=== PATIENT | female | born 1975 | race Caucasian/White ===

== ENCOUNTER 2019-07-25 11:00 | Emergency (ER) | payer MEDICAID, OTHER ==
[~2019-07-25] VITALS: Ht 167.6 cm; Wt 58.2 kg
[2019-07-25] MEDS ORDERED: ondansetron/PF 4mg/2ml inj IV ONE (11:35)
[2019-07-25] MEDS ORDERED: morphine 4 MG/ML inj SYRINge IV PRN (11:35)
[2019-07-25] MEDS ORDERED: normal saline 1000ML IV soln IVB ONE (11:35)
[2019-07-25 11:40] LABS: BASOPHILS % (AUTO) 0.1 % (0-1); EOSINOPHILS # (AUTO) 0.1 X10'3 (0-0.9); EOSINOPHILS % (AUTO) 1.4 % (0-6); HEMATOCRIT 43.3 % (35.0-45.0); HEMOGLOBIN 14.8 g/dl (12.0-16.0); LYMPHOCYTES # (AUTO) 2.1 X10'3 (1.1-4.8); LYMPHOCYTES % (AUTO) 29.4 % (21-51); MEAN CORPUSCULAR HEMOGLOBIN 33.9 PG (27.0-31.0); MEAN CORPUSCULAR HGB CONC 34.3 g/dL (33.0-36.5); MEAN CORPUSCULAR VOLUME 98.9 FL (78-98); MEAN PLATELET VOLUME 7.1 FL (7.4-10.4); MONOCYTES # (AUTO) 0.6 X10'3 (0-0.9); MONOCYTES % (AUTO) 8.7 % (2-12); NEUTROPHILS # (AUTO) 4.3 X10'3 (1.8-7.7); NEUTROPHILS % (AUTO) 60.4 % (42-75); PLATELET COUNT 258 X10'3 (140-440); RED BLOOD COUNT 4.38 X10'6 (4.20-5.60); RED CELL DISTRIBUTION WIDTH 13.5 % (11.5-14.5); WHITE BLOOD COUNT 7.1 X10'3 (4.5-11.0)
[2019-07-25 11:49] LABS: URINE HCG NEGATIVE (NEG)
[2019-07-25 11:53] LABS: CLARITY,URINE SLIGHTLY CLOUDY (Clear); COLOR,URINE YELLOW (Yellow); GLUCOSE, URINE NEGATIVE (Neg); KETONES,URINE TRACE mg/dl (Neg); LEUKOCYTE ESTERASE ,URINE NEGATIVE (Neg); NITRITES, URINE NEGATIVE (Neg); OCCULT BLOOD,URINE NEGATIVE (Neg); PROTEIN,URINE NEGATIVE (Neg); UROBILINOGEN,URINE 0.2 E.U/dL (0.2-1.0)
[2019-07-25 11:54] LABS: UA COLLECTION TYPE CLN CATCH MIDSTREAM
[2019-07-25 11:57] LABS: ALANINE AMINOTRANSFERASE 15 U/L (12-78); ALBUMIN 3.6 G/DL (3.4-5.0); ALKALINE PHOSPHATASE 82 IU/L (46-116); ANION GAP 9 (8-16); ASPARTATE AMINO TRANSFERASE 12 U/L (10-37); BILIRUBIN,TOTAL 0.5 MG/DL (0.1-1.0); BLOOD UREA NITROGEN 11 MG/DL (7-18); BUN/CREATININE RATIO 11.6 (6.6-38.0); CALCIUM 8.5 MG/DL (8.5-10.1); CHLORIDE 107 MMOL/L (99-107); CREATININE 0.95 MG/DL (0.40-0.90); GLUCOSE 98 MG/DL (70-104); LIPASE 120 U/L (73-393); POTASSIUM 3.9 MMOL/L (3.5-5.1); SODIUM 142 MMOL/L (135-145); TOTAL CARBON DIOXIDE 25.8 MMOL/L (24-32); TOTAL PROTEIN 7.3 G/DL (6.4-8.2); eGFR 65 ML/MIN
[2019-07-25] MEDS ORDERED: iohexol 300mg/ml 100ml inj. ONE (12:08)
[2019-07-25 12:11] LABS: RBC,URINE 0-2 /HPF (0-2)
[2019-07-25 12:13] LABS: SQUAMOUS EPITHELIAL CELL,UR MANY /LPF (FEW)
[2019-07-25 12:16] LABS: AMORPHOUS PHOSPHATES 1+; BACTERIA,URINE 1+ /HPF (Neg)
[2019-07-25 12:18] LABS: MUCUS STRANDS MODERATE /LPF (Neg); WBC,URINE 0-4 /HPF (0-4)
[2019-07-25 12:31] LABS: TROPONIN I < 0.04 NG/ML (0.0-0.05)
[2019-07-25] MEDS ORDERED: ONDA4TAB6 PO (13:14)
[2019-07-25] MEDS ORDERED: TRAM50TA2 PO (13:14)
[2019-07-25] MEDS ORDERED: proCHLORperazine 10 MG/2 ml inj IV ONE (13:15)
[2019-07-25] MEDS ORDERED: ketorolac trometh. 30mg/ml inj. IV ONE (13:15)
[2019-07-25] MEDS ORDERED: famotidine/PF 10 mg/ml inj IV ONE (13:15)
[2019-07-25 13:31] VITALS: BP 99/50
== END 2019-07-25 13:41 | disposition home or self-care (01) ==
LOC: ER 11:01
DX: R10.84 Generalized abdominal pain (principal); F17.200 Nicotine dependence, unspecified, uncomplicated; Z79.899 Other long term (current) drug therapy
CPT/HCPCS: 36415; 71045; 74177; 80053; 81001; 81025; 83690; 84484; 85025; 85610; 93005; 96361; 96374; 96375; 99284; J0780; J1885; J2270; J2405; J3490; J7030; Q9967

== ENCOUNTER 2019-07-28 20:57 | Emergency (ER) | payer MEDICAID, OTHER ==
[~2019-07-28] VITALS: Ht 168.9 cm; Wt 56.4 kg
[~2019-07-28 20:57] MED LIST: ONDA4TAB6 PO; TRAM50TA2 PO
[2019-07-28] MEDS ORDERED: normal saline 1000ml 1,000 ML IVB ONE (21:03)
[2019-07-28 21:37] LABS: BASOPHILS # (AUTO) 0.1 X10'3 (0-0.2); BASOPHILS % (AUTO) 1.3 % (0-1); EOSINOPHILS # (AUTO) 0.1 X10'3 (0-0.9); EOSINOPHILS % (AUTO) 1.8 % (0-6); HEMATOCRIT 41.4 % (35.0-45.0); HEMOGLOBIN 14.2 g/dl (12.0-16.0); LYMPHOCYTES # (AUTO) 2.1 X10'3 (1.1-4.8); LYMPHOCYTES % (AUTO) 25.8 % (21-51); MEAN CORPUSCULAR HEMOGLOBIN 34.5 PG (27.0-31.0); MEAN CORPUSCULAR HGB CONC 34.4 g/dL (33.0-36.5); MEAN CORPUSCULAR VOLUME 100.3 FL (78-98); MEAN PLATELET VOLUME 7.5 FL (7.4-10.4); MONOCYTES # (AUTO) 0.6 X10'3 (0-0.9); MONOCYTES % (AUTO) 7.8 % (2-12); NEUTROPHILS # (AUTO) 5.2 X10'3 (1.8-7.7); NEUTROPHILS % (AUTO) 63.3 % (42-75); PLATELET COUNT 238 X10'3 (140-440); RED BLOOD COUNT 4.13 X10'6 (4.20-5.60); WHITE BLOOD COUNT 8.2 X10'3 (4.5-11.0)
[2019-07-28 21:39] LABS: URINE HCG NEGATIVE (NEG)
[2019-07-28 21:42] LABS: CLARITY,URINE CLEAR (Clear); COLOR,URINE YELLOW (Yellow); GLUCOSE, URINE NEGATIVE (Neg); KETONES,URINE TRACE mg/dl (Neg); LEUKOCYTE ESTERASE ,URINE NEGATIVE (Neg); NITRITES, URINE NEGATIVE (Neg); OCCULT BLOOD,URINE TRACE-INTACT (Neg); PH,URINE 5.5 (4.8-8.0); PROTEIN,URINE NEGATIVE (Neg); UROBILINOGEN,URINE 0.2 E.U/dL (0.2-1.0)
[2019-07-28 21:45] LABS: UA COLLECTION TYPE CLN CATCH MIDSTREAM
[2019-07-28 21:48] LABS: BACTERIA,URINE 1+ /HPF (Neg); MUCUS STRANDS MANY /LPF (Neg); RBC,URINE 0-2 /HPF (0-2); SQUAMOUS EPITHELIAL CELL,UR MANY /LPF (FEW); WBC,URINE 0-4 /HPF (0-4)
[2019-07-28 21:54] LABS: ALANINE AMINOTRANSFERASE 13 U/L (12-78); ALBUMIN 3.5 G/DL (3.4-5.0); ALBUMIN/GLOBULIN RATIO 0.9 (1.1-1.5); ALKALINE PHOSPHATASE 77 IU/L (46-116); AMYLASE 40 U/L (25-115); ANION GAP 10 (8-16); ASPARTATE AMINO TRANSFERASE 8 U/L (10-37); BILIRUBIN,TOTAL 0.3 MG/DL (0.1-1.0); BLOOD UREA NITROGEN 10 MG/DL (7-18); CALCIUM 8.6 MG/DL (8.5-10.1); CHLORIDE 105 MMOL/L (99-107); CREATININE 1.11 MG/DL (0.40-0.90); GLUCOSE 94 MG/DL (70-104); LIPASE 116 U/L (73-393); POTASSIUM 4.2 MMOL/L (3.5-5.1); SODIUM 140 MMOL/L (135-145); TOTAL CARBON DIOXIDE 24.8 MMOL/L (24-32); TOTAL PROTEIN 7.2 G/DL (6.4-8.2); eGFR 54 ML/MIN
[2019-07-29] MEDS ORDERED: HYDROcodone/acetaminophen 5mg/325mg tablet PO ONE (00:35)
[2019-07-29] MEDS ORDERED: ondansetron/PF 4mg/2ml inj IV ONE (00:35)
[2019-07-29] MEDS ORDERED: normal saline 1000ml 1,000 ML IV ONE (00:35)
[2019-07-29] MEDS ORDERED: ketorolac trometh. 30mg/ml inj. IV ONE (00:35)
[2019-07-29] MEDS ORDERED: MAGN296S50 PO (02:15)
[2019-07-29] MEDS ORDERED: ONDA8TAB6 PO (02:15)
[2019-07-29] MEDS ORDERED: BISA-155 PO (02:15)
[2019-07-29 02:50] VITALS: BP 106/62
== END 2019-07-29 02:59 | disposition home or self-care (01) ==
LOC: ER 21:00
DX: K59.00 Constipation, unspecified (principal); R10.32 Left lower quadrant pain; R11.2 Nausea with vomiting, unspecified; Z79.899 Other long term (current) drug therapy
CPT/HCPCS: 36415; 74018; 80053; 81001; 81025; 82150; 83690; 85025; 85610; 96361; 96374; 96375; 99284; J1885; J2405; J7030

== ENCOUNTER 2019-07-30 08:25 | Emergency (ER) | payer MEDICAID, OTHER ==
[~2019-07-30] VITALS: Ht 160 cm; Wt 50.0 kg
[~2019-07-30 08:25] MED LIST changes: +BISA-155 PO; +MAGN296S50 PO; +ONDA8TAB6 PO
[2019-07-30] MEDS ORDERED: ondansetron/PF 4mg/2ml inj IV ONE (08:40)
[2019-07-30] MEDS ORDERED: normal saline 1000ML IV soln IVB ONE (08:40)
[2019-07-30] MEDS ORDERED: morphine 4 MG/ML inj SYRINge IV ONE (08:40)
[2019-07-30 09:09] LABS: BASOPHILS # (AUTO) 0.1 X10'3 (0-0.2); BASOPHILS % (AUTO) 1.1 % (0-1); EOSINOPHILS # (AUTO) 0.1 X10'3 (0-0.9); EOSINOPHILS % (AUTO) 1.6 % (0-6); HEMATOCRIT 41.2 % (35.0-45.0); HEMOGLOBIN 13.9 g/dl (12.0-16.0); LYMPHOCYTES # (AUTO) 1.5 X10'3 (1.1-4.8); LYMPHOCYTES % (AUTO) 25.4 % (21-51); MEAN CORPUSCULAR HEMOGLOBIN 33.8 PG (27.0-31.0); MEAN CORPUSCULAR HGB CONC 33.7 g/dL (33.0-36.5); MEAN CORPUSCULAR VOLUME 100.2 FL (78-98); MEAN PLATELET VOLUME 7.3 FL (7.4-10.4); MONOCYTES # (AUTO) 0.5 X10'3 (0-0.9); NEUTROPHILS # (AUTO) 3.7 X10'3 (1.8-7.7); NEUTROPHILS % (AUTO) 62.9 % (42-75); PLATELET COUNT 245 X10'3 (140-440); RED BLOOD COUNT 4.11 X10'6 (4.20-5.60); RED CELL DISTRIBUTION WIDTH 13.8 % (11.5-14.5); WHITE BLOOD COUNT 5.9 X10'3 (4.5-11.0)
[2019-07-30 09:22] LABS: ANION GAP 9 (8-16); BLOOD UREA NITROGEN 6 MG/DL (7-18); BUN/CREATININE RATIO 5.8 (6.6-38.0); CHLORIDE 106 MMOL/L (99-107); CREATININE 1.04 MG/DL (0.40-0.90); GLUCOSE 104 MG/DL (70-104); POTASSIUM 3.8 MMOL/L (3.5-5.1); SODIUM 142 MMOL/L (135-145); TOTAL CARBON DIOXIDE 27.5 MMOL/L (24-32); eGFR 58 ML/MIN
[2019-07-30 09:23] LABS: ALANINE AMINOTRANSFERASE 13 U/L (12-78); ALBUMIN 3.2 G/DL (3.4-5.0); ALBUMIN/GLOBULIN RATIO 0.9 (1.1-1.5); ALKALINE PHOSPHATASE 76 IU/L (46-116); ASPARTATE AMINO TRANSFERASE 9 U/L (10-37); BILIRUBIN,TOTAL 0.3 MG/DL (0.1-1.0); CALCIUM 8.6 MG/DL (8.5-10.1); LIPASE 91 U/L (73-393); TOTAL PROTEIN 6.9 G/DL (6.4-8.2)
[2019-07-30 09:28] LABS: URINE AMPHETAMINE SCREEN NEGATIVE (Neg); URINE BARBITUATE SCREEN NEGATIVE (Neg); URINE BENZODIAZEPINES SCREEN NEGATIVE (Neg); URINE CANNABINOID SCREEN NEGATIVE (Neg); URINE COCAINE SCREEN NEGATIVE (Neg); URINE METHADONE SCREEN NEGATIVE (Neg); URINE OPIATE SCREEN NEGATIVE (Neg); URINE PHENCYCLIDINE SCREEN NEGATIVE (Neg)
[2019-07-30] MEDS ORDERED: ketorolac tromethamine 15mg/ml inj. IV ONE (09:45)
[2019-07-30 10:26] VITALS: BP 120/79
== END 2019-07-30 10:32 | disposition home or self-care (01) ==
LOC: ER 08:25
DX: R10.13 Epigastric pain (principal); R11.2 Nausea with vomiting, unspecified; M54.6 Pain in thoracic spine; Z79.899 Other long term (current) drug therapy
CPT/HCPCS: 36415; 80053; 80305; 83690; 85025; 93005; 96361; 96374; 96375; 99284; J1885; J2270; J2405; J7030

== ENCOUNTER 2019-08-02 14:04 | Emergency (ER) | payer MEDICAID, OTHER ==
[~2019-08-02] VITALS: Ht 170.2 cm; Wt 55.5 kg
[2019-08-02 14:41] LABS: BASOPHILS % (AUTO) 0.5 % (0-1); EOSINOPHILS # (AUTO) 0.1 X10'3 (0-0.9); EOSINOPHILS % (AUTO) 0.9 % (0-6); HEMATOCRIT 43.7 % (35.0-45.0); HEMOGLOBIN 14.9 g/dl (12.0-16.0); LYMPHOCYTES # (AUTO) 1.5 X10'3 (1.1-4.8); LYMPHOCYTES % (AUTO) 17.7 % (21-51); MEAN CORPUSCULAR HGB CONC 34.1 g/dL (33.0-36.5); MEAN PLATELET VOLUME 7.3 FL (7.4-10.4); MONOCYTES # (AUTO) 0.5 X10'3 (0-0.9); MONOCYTES % (AUTO) 6.3 % (2-12); NEUTROPHILS # (AUTO) 6.4 X10'3 (1.8-7.7); NEUTROPHILS % (AUTO) 74.6 % (42-75); PLATELET COUNT 310 X10'3 (140-440); RED BLOOD COUNT 4.38 X10'6 (4.20-5.60); WHITE BLOOD COUNT 8.6 X10'3 (4.5-11.0)
[2019-08-02 15:00] LABS: ALANINE AMINOTRANSFERASE 17 U/L (12-78); ALBUMIN 3.6 G/DL (3.4-5.0); ALBUMIN/GLOBULIN RATIO 0.9 (1.1-1.5); ALKALINE PHOSPHATASE 82 IU/L (46-116); AMYLASE 28 U/L (25-115); ANION GAP 10 (8-16); ASPARTATE AMINO TRANSFERASE 15 U/L (10-37); BILIRUBIN,TOTAL 0.4 MG/DL (0.1-1.0); BLOOD UREA NITROGEN 8 MG/DL (7-18); BUN/CREATININE RATIO 7.5 (6.6-38.0); CHLORIDE 104 MMOL/L (99-107); CREATININE 1.07 MG/DL (0.40-0.90); GLUCOSE 89 MG/DL (70-104); LIPASE 71 U/L (73-393); POTASSIUM 4.2 MMOL/L (3.5-5.1); SODIUM 142 MMOL/L (135-145); TOTAL CARBON DIOXIDE 27.7 MMOL/L (24-32); TOTAL PROTEIN 7.8 G/DL (6.4-8.2); eGFR 56 ML/MIN
[2019-08-02] MEDS ORDERED: normal saline 1000ML IV soln IVB ONE (15:20)
[2019-08-02] MEDS ORDERED: ondansetron/PF 4mg/2ml inj IV ONE (15:20)
[2019-08-02] MEDS ORDERED: morphine 4 MG/ML inj SYRINge IV PRN (15:20)
[2019-08-02] MEDS ORDERED: ketorolac trometh. 30mg/ml inj. IV ONE (15:20)
[2019-08-02 17:03] LABS: CLARITY,URINE CLOUDY (Clear); COLOR,URINE YELLOW (Yellow); GLUCOSE, URINE NEGATIVE (Neg); KETONES,URINE 40 mg/dl (Neg); LEUKOCYTE ESTERASE ,URINE NEGATIVE (Neg); NITRITES, URINE NEGATIVE (Neg); OCCULT BLOOD,URINE NEGATIVE (Neg); PROTEIN,URINE NEGATIVE (Neg); UA COLLECTION TYPE CLN CATCH MIDSTREAM; UROBILINOGEN,URINE 0.2 E.U/dL (0.2-1.0)
[2019-08-02 17:05] LABS: URINE HCG NEGATIVE (NEG)
[2019-08-02 17:12] LABS: AMORPHOUS PHOSPHATES 2+; SQUAMOUS EPITHELIAL CELL,UR MODERATE /LPF (FEW)
[2019-08-02 17:16] LABS: BACTERIA,URINE FEW /HPF (Neg); RBC,URINE 0-2 /HPF (0-2); WBC,URINE 0-4 /HPF (0-4)
[2019-08-02] MEDS ORDERED: dexamethasone sod phosphate 10mg/ml inj IV STA (17:17)
[2019-08-02] MEDS ORDERED: ONDA4TAB6 PO (17:18)
[2019-08-02] MEDS ORDERED: METO-292 PO (17:18)
[2019-08-02] MEDS ORDERED: metoclopramide 5 mg/ml inj IV ONE (17:20)
[2019-08-02 17:41] VITALS: BP 103/46
== END 2019-08-02 17:44 | disposition home or self-care (01) ==
LOC: ER 14:05
DX: G89.29 Other chronic pain (principal); R10.84 Generalized abdominal pain; R11.2 Nausea with vomiting, unspecified
CPT/HCPCS: 36415; 76856; 80053; 81001; 81025; 82150; 83690; 85025; 85610; 96361; 96374; 96375; 99284; J1100; J1885; J2270; J2405; J2765; J7030

== ENCOUNTER 2019-08-05 11:33 | Inpatient (IN) | payer MEDICAID, OTHER ==
[2019-08-05] VITALS (7 sets, daily range): BP systolic 100–109; BP diastolic 49–72
[~2019-08-05] VITALS: Ht 170.2 cm; Wt 60.9 kg
[~2019-08-05 11:33] MED LIST changes: +METO-292 PO
[2019-08-05] MEDS ORDERED: normal saline 1000ML IV soln IVB ONE (12:50)
[2019-08-05] MEDS ORDERED: haloperidol lactate 5mg/ml inj IM ONE (12:50)
[2019-08-05] MEDS ORDERED: LORazepam 2 mg/ml vial IV ONE (12:50)
[2019-08-05] MEDS ORDERED: metoclopramide 5 mg/ml inj IV ONE (12:50)
[2019-08-05] MEDS: diatr meglu/diatrizoate 30ml oral sol.-(3 dose) bottle PO SCH ×3 (13:03→14:32)
[2019-08-05] MEDS ORDERED: diphenhydrAMINE 50 mg/ml inj IV ONE (13:25)
[2019-08-05] MEDS ORDERED: ketorolac trometh. 30mg/ml inj. IV ONE (13:25)
[2019-08-05 13:34] LABS: BASOPHILS # (AUTO) 0.1 X10'3 (0-0.2); BASOPHILS % (AUTO) 1.3 % (0-1); EOSINOPHILS # (AUTO) 0.1 X10'3 (0-0.9); EOSINOPHILS % (AUTO) 1.2 % (0-6); HEMATOCRIT 36.7 % (35.0-45.0); HEMOGLOBIN 12.4 g/dl (12.0-16.0); LYMPHOCYTES # (AUTO) 0.9 X10'3 (1.1-4.8); LYMPHOCYTES % (AUTO) 14.2 % (21-51); MEAN CORPUSCULAR HEMOGLOBIN 33.9 PG (27.0-31.0); MEAN CORPUSCULAR HGB CONC 33.8 g/dL (33.0-36.5); MEAN CORPUSCULAR VOLUME 100.1 FL (78-98); MEAN PLATELET VOLUME 7.4 FL (7.4-10.4); MONOCYTES # (AUTO) 0.2 X10'3 (0-0.9); MONOCYTES % (AUTO) 3.8 % (2-12); NEUTROPHILS # (AUTO) 5.1 X10'3 (1.8-7.7); NEUTROPHILS % (AUTO) 79.5 % (42-75); PLATELET COUNT 272 X10'3 (140-440); RED BLOOD COUNT 3.66 X10'6 (4.20-5.60); RED CELL DISTRIBUTION WIDTH 13.5 % (11.5-14.5); WHITE BLOOD COUNT 6.4 X10'3 (4.5-11.0)
[2019-08-05 13:47] LABS: ALANINE AMINOTRANSFERASE 11 U/L (12-78); ALBUMIN/GLOBULIN RATIO 0.9 (1.1-1.5); ALKALINE PHOSPHATASE 63 IU/L (46-116); ANION GAP 7 (8-16); ASPARTATE AMINO TRANSFERASE 10 U/L (10-37); BILIRUBIN,TOTAL 0.6 MG/DL (0.1-1.0); BLOOD UREA NITROGEN 12 MG/DL (7-18); BUN/CREATININE RATIO 10.7 (6.6-38.0); CHLORIDE 107 MMOL/L (99-107); CREATININE 1.12 MG/DL (0.40-0.90); GLUCOSE 111 MG/DL (70-104); LIPASE 84 U/L (73-393); MAGNESIUM 1.8 MG/DL (1.5-2.4); SODIUM 142 MMOL/L (135-145); TOTAL CARBON DIOXIDE 27.8 MMOL/L (24-32); TOTAL PROTEIN 6.4 G/DL (6.4-8.2); eGFR 53 ML/MIN
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
--- NOTE | 2019-08-05 14:06 | NUR ---
PT SCREAMING AT STAFF WALKING BY ROOM THAT SHE CANT BREATHE AND HER LIPS ARE TURNING BLUE. I EXAMINED PT WHO SAID SHE NEEDS SOMETHING "STRONGER FOR PAIN". ADVISED. NO NEW ORDERS.
[2019-08-05] MEDS ORDERED: iohexol 300mg/ml 100ml inj. ONE (14:32)
[2019-08-05] MEDS ORDERED: morphine 4 MG/ML inj SYRINge IV ONE (15:15)
[2019-08-05] MEDS ORDERED: normal saline 1000ML IV soln IV ONE (15:25)
[2019-08-05] MEDS ORDERED: piperacillin/tazo 3.375gm/50ml 50 ML IV ONE (15:25)
--- NOTE | 2019-08-05 15:58 | NUR ---
AUGUST Kim in room with pt
[2019-08-05] MEDS: piperacillin/tazo 4.5gm/100ml 100 ML IV SCH (16:00)
--- NOTE | 2019-08-05 16:09 | NUR ---
Shetty catheter placed with Angelina RN as witness
[2019-08-05 16:18] LABS: URINE HCG NEGATIVE (NEG)
[2019-08-05 16:20] LABS: CLARITY,URINE SLIGHTLY CLOUDY (Clear); COLOR,URINE YELLOW (Yellow); GLUCOSE, URINE 250 mg/dl (Neg); KETONES,URINE NEGATIVE (Neg); LEUKOCYTE ESTERASE ,URINE NEGATIVE (Neg); NITRITES, URINE NEGATIVE (Neg); OCCULT BLOOD,URINE LARGE (Neg); PH,URINE 6.5 (4.8-8.0); PROTEIN,URINE NEGATIVE (Neg); UROBILINOGEN,URINE 0.2 E.U/dL (0.2-1.0)
[2019-08-05 16:24] LABS: UA COLLECTION TYPE OTHER
[2019-08-05 16:27] LABS: SQUAMOUS EPITHELIAL CELL,UR FEW /LPF (FEW)
[2019-08-05] MEDS: metroNIDAZOLE-Flagyl 500mg/NS 100 ML IV SCH ×2 (16:27→23:50)
[2019-08-05 16:28] LABS: BACTERIA,URINE NONE SEEN /HPF (Neg); RBC,URINE 50-100 /HPF (0-2); WBC,URINE 0-4 /HPF (0-4)
[2019-08-05 16:47] LABS: URINE AMPHETAMINE SCREEN NEGATIVE (Neg); URINE BARBITUATE SCREEN NEGATIVE (Neg); URINE BENZODIAZEPINES SCREEN NEGATIVE (Neg); URINE CANNABINOID SCREEN POSITIVE (Neg); URINE COCAINE SCREEN NEGATIVE (Neg); URINE METHADONE SCREEN NEGATIVE (Neg); URINE OPIATE SCREEN POSITIVE (Neg); URINE PHENCYCLIDINE SCREEN NEGATIVE (Neg)
--- NOTE | 2019-08-05 16:55 | NUR ---
MD Cantrell in room with pt and pt's sister.
[2019-08-05] MEDS ORDERED: clindamycin phosphate 150mg/ml inj. ONE (17:22)
[2019-08-05] MEDS ORDERED: gentamicin 40 MG/1 ML inj ONE (17:22)
[2019-08-05] MEDS ORDERED: ringers solution, lacted 1,000 ML IV SCH (17:27)
[2019-08-05] MEDS ORDERED: morphine 4 MG/ML inj SYRINge IV PRN ×2 (17:30)
[2019-08-05] MEDS ORDERED: meperidine/PF 25mg/ml syringe IV PRN ×3 (17:30)
[2019-08-05] MEDS ORDERED: proCHLORperazine 10 MG/2 ml inj IV PRN (17:30)
[2019-08-05] MEDS ORDERED: ondansetron/PF 4mg/2ml inj IV PRN ×2 (17:30→20:40)
[2019-08-05] MEDS: normal saline 1000ml 1,000 ML IV SCH ×3 (17:40→22:32)
--- NOTE | 2019-08-05 17:47 | NUR ---
Pt picked up by OR techs and transported to OR with sister
[2019-08-05] MEDS ORDERED: ondansetron/PF 4mg/2ml inj ONE (17:52)
[2019-08-05] MEDS ORDERED: dexamethasone sod phosphate 10mg/ml inj ONE (17:52)
[2019-08-05] MEDS ORDERED: sevoflurane 250ml liquid IH ONE (17:52)
[2019-08-05] MEDS ORDERED: midazolam 2 mg/2 ml injection ONE (18:01)
[2019-08-05] MEDS ORDERED: fentaNYL /PF 50mcg/ml 5ml ampule ONE (18:01)
[2019-08-05] MEDS ORDERED: propofol inj 20 ML IV ONE (18:16)
[2019-08-05] MEDS ORDERED: LIDOcaine 2% (20mg/ml) 5ml vial ONE (18:16)
[2019-08-05] MEDS ORDERED: BUPIVACAINE liposomal/PF 13.3 MG/ML vial IM ONE (19:54)
[2019-08-05] MEDS ORDERED: BUPIVAcaine/PF 2.5 mg/ml (0.25%) 30ml vial ONE (19:54)
[2019-08-05] MEDS ORDERED: magnesium 2GM in 50ml NS 50 ML IV PRN (20:40)
[2019-08-05] MEDS ORDERED: acetaminophen 325mg tablet PO PRN ×2 (20:40)
[2019-08-05] MEDS ORDERED: magnesium 4gm in 100ml NS 100 ML IV PRN (20:40)
[2019-08-05] MEDS ORDERED: potassium CL 10mEq/100ml bag 100 ML IV PRN ×2 (20:40)
[2019-08-05] MEDS ORDERED: sodium phosphate inj. 30 MMOL in dextrose 5%-water 250 ML IV PRN (20:40)
[2019-08-05] MEDS ORDERED: acetaminophen 650mg rectal suppository RC PRN (20:40)
[2019-08-05] MEDS ORDERED: magnesium hydroxide 30ml (MOM) UD suspension PO PRN (20:40)
[2019-08-05] MEDS ORDERED: sodium phosphate inj. 15 MMOL in dextrose 5%-water 150 ML IV PRN (20:40)
[2019-08-05] MEDS ORDERED: rocuronium 10mg/ml inj IV ONE ×2 (20:59→21:00)
[2019-08-05] MEDS ORDERED: meperidine/PF 50mg/ml syringe ONE (21:00)
--- NOTE | 2019-08-05 21:15 | NUR ---
ADMIT TO ICU ACCOMPANIED BY ANESTHESIA, EXTUBATED NO CENTRAL LINES, AROUSABLE TO NAME DENIES PAIN. [place] DRAIN WITH MINIMAL DRAINAGE, ZHU CATHETER INTACT.N/G TUBE TO LOW INTERMITTENT SUCTION ORDERED. INITIAL PHYSICAL ASSESMENT DONE AND RECORDED.
--- NOTE | 2019-08-05 21:45 | NUR ---
PT IS RESPONSIVE, DENIES SURGICAL PAIN. VSS. ON NASAL CANNULA WITH GOOD SATURATIONS~100%
--- NOTE | 2019-08-05 22:00 | NUR ---
DISCHARGE CRITERIA MET, NO COMPLAINTS OF PAIN DURING RECOVERY. TAP BLOCK EFFECTIVE, VSS STABLE. HAND OFF TO AIRPLANE ENGINEER JOSSE. PT IS IN ICU FOR 24 HR OBSERVATION. STABLE.
[2019-08-05] MEDS: pantoprazole 40 MG vial IV SCH (22:32)
[2019-08-06] VITALS (21 sets, daily range): BP systolic 85–112; BP diastolic 39–72
[2019-08-06] MEDS: morphine 2 MG/ML inj. syringe IV PRN ×2 (00:19→07:28)
[2019-08-06] MEDS: piperacillin/tazo 4.5gm/100ml 100 ML IV SCH ×3 (01:09→16:52)
[2019-08-06 01:10] LABS: BASOPHILS % (AUTO) 0.1 % (0-1); EOSINOPHILS % (AUTO) 0 % (0-6); HEMATOCRIT 34.6 % (35.0-45.0); HEMOGLOBIN 11.9 g/dl (12.0-16.0); LYMPHOCYTES # (AUTO) 0.5 X10'3 (1.1-4.8); LYMPHOCYTES % (AUTO) 4.9 % (21-51); MEAN CORPUSCULAR HEMOGLOBIN 33.9 PG (27.0-31.0); MEAN CORPUSCULAR HGB CONC 34.2 g/dL (33.0-36.5); MEAN PLATELET VOLUME 7.4 FL (7.4-10.4); MONOCYTES # (AUTO) 0.3 X10'3 (0-0.9); MONOCYTES % (AUTO) 3.4 % (2-12); NEUTROPHILS # (AUTO) 8.7 X10'3 (1.8-7.7); NEUTROPHILS % (AUTO) 91.6 % (42-75); PLATELET COUNT 249 X10'3 (140-440); RED CELL DISTRIBUTION WIDTH 13.7 % (11.5-14.5); WHITE BLOOD COUNT 9.5 X10'3 (4.5-11.0)
[2019-08-06 01:17] LABS: PARTIAL THROMBOPLASTIN TIME 28 SECONDS (22-32)
[2019-08-06 01:19] LABS: ALANINE AMINOTRANSFERASE 35 U/L (12-78); ALBUMIN 2.3 G/DL (3.4-5.0); ALBUMIN/GLOBULIN RATIO 0.7 (1.1-1.5); ALKALINE PHOSPHATASE 49 IU/L (46-116); ANION GAP 7 (8-16); ASPARTATE AMINO TRANSFERASE 41 U/L (10-37); BILIRUBIN,TOTAL 0.7 MG/DL (0.1-1.0); BLOOD UREA NITROGEN 9 MG/DL (7-18); BUN/CREATININE RATIO 9.4 (6.6-38.0); CALCIUM 7.4 MG/DL (8.5-10.1); CHLORIDE 111 MMOL/L (99-107); CREATININE 0.96 MG/DL (0.40-0.90); GLUCOSE 150 MG/DL (70-104); MAGNESIUM 1.5 MG/DL (1.5-2.4); PHOSPHORUS 3.6 MG/DL (2.3-4.5); POTASSIUM 4.6 MMOL/L (3.5-5.1); SODIUM 142 MMOL/L (135-145); TOTAL CARBON DIOXIDE 24.5 MMOL/L (24-32); TOTAL PROTEIN 5.5 G/DL (6.4-8.2); eGFR 64 ML/MIN
[2019-08-06] MEDS: normal saline 1000ml 1,000 ML IV SCH (01:55)
[2019-08-06] MEDS: dextrose 5%-1/2 normal saline 1,000 ML IV SCH ×2 (02:20→15:15)
[2019-08-06] MEDS: pantoprazole 40 MG vial IV SCH (07:27)
[2019-08-06] MEDS: metroNIDAZOLE-Flagyl 500mg/NS 100 ML IV SCH (07:28)
[2019-08-06] MEDS: docusate sod 100mg capsule PO SCH ×2 (08:00→20:00)
[2019-08-06] MEDS ORDERED: pantoprazole 40 MG vial IV ONE (08:00)
[2019-08-06] MEDS ORDERED: CADD PCA waste documentation MC SCH (08:05)
[2019-08-06] MEDS: HYDROmorphone/NS 1 mg/ml CADD 50 ML IV SCH ×9 (08:27→23:00)
[2019-08-06] MEDS: K, MAG and/or Phos replacement - Verify level? MC SCH (08:34)
--- NOTE | 2019-08-06 08:42 | NUR ---
Dilaudid COLOR CONSULTANT started and patient education given re use, medication and pain management using the atv mechanic. Pain level 8-9/10 with Morphine being ineffective. Upper abd pain with dressing cdi. No bowel sounds yet. NG still in place to low int suction. No drainage from ng.
--- NOTE | 2019-08-06 11:00 | NUR ---
States pain now well controlled after Dilaudid solution make up operator started. States pain 3-4 at this time.
[2019-08-06] MEDS ORDERED: albumin (human) 25% 100 ML IV solution IV ONE (12:35)
--- NOTE | 2019-08-06 13:00 | NUR ---
Urinestated she felt urge to urinate and felt a full bladder. Bladder distended. On assessment of the jean catheter, the bag was collapsed on itself. After air was let into the collection bag, bag filled with 450 ml of urine and patient stated relief. Bag now draining appropriately with good urine output.
[2019-08-06] MEDS ORDERED: NO HOME MEDS (17:27)
--- NOTE | 2019-08-06 17:52 | NUR ---
Abd dressing changed per Dr Fermin orders. Dry iodoform packing along staple line removed. Dressing replaced using sterile procedure. Staple line about 6 inches in length with no s/s of infection. Appears to be healing well. Some serosanguinous drainage to dressing around the alok drain site but alok drain has been with just scant output all day. ALOK drain to left abdomen intact. Staple line and drain site cleaned with Betadine. New sterile 4x4 dressing applied and bordered gauze to secure. Pt tolerated well.
--- NOTE | 2019-08-06 18:46 | NUR ---
Patient in room CICU 2013. I have received report from NOLBERTO Ellis and had the opportunity to ask questions and assume patient care. Patient awake for bedside report and on 2L NC. NG tube to low intermittent suction. D5 1/2 NS infusing per provider order. Patient states adequate pain control at this time. CADD settings 0.2 mg Dilaudid IV confirmed. Patient stable at this time and will continue to monitor closely.
[2019-08-06] MEDS: lactobacillus rhamnosus 10,000 MMU CELLS/CAPSULE PO SCH (20:00)
[2019-08-06] MEDS ORDERED: albumin (human) 25% 100ml IV 100 ML IV ONE (20:25)
[2019-08-06 22:26] LABS: ALBUMIN 2.5 G/DL (3.4-5.0); ANION GAP 8 (8-16); BLOOD UREA NITROGEN 9 MG/DL (7-18); BUN/CREATININE RATIO 9.2 (6.6-38.0); CALCIUM 8.2 MG/DL (8.5-10.1); CHLORIDE 107 MMOL/L (99-107); CREATININE 0.98 MG/DL (0.40-0.90); GLUCOSE 97 MG/DL (70-104); POTASSIUM 4.1 MMOL/L (3.5-5.1); SODIUM 140 MMOL/L (135-145); TOTAL CARBON DIOXIDE 25.5 MMOL/L (24-32); eGFR 62 ML/MIN
[2019-08-07] VITALS (17 sets, daily range): BP systolic 82–118; BP diastolic 44–67
[2019-08-07] MEDS: piperacillin/tazo 4.5gm/100ml 100 ML IV SCH ×3 (00:02→16:08)
[2019-08-07] MEDS: dextrose 5%-1/2 normal saline 1,000 ML IV SCH ×4 (00:21→22:34)
[2019-08-07] MEDS: HYDROmorphone/NS 1 mg/ml CADD 50 ML IV SCH ×12 (01:00→23:00)
[2019-08-07] MEDS ORDERED: albumin (Human) 5% 250ml 250 ML IV ONE (03:30)
--- NOTE | 2019-08-07 03:55 | NUR ---
November MYLA Hitchcock notified of systolic bp of 84 at 0300 with HR of 59. New orders received for 250 mL/hr of 25% albumin in 250 mL. Will continue to monitor closely.
[2019-08-07 05:17] LABS: BASOPHILS % (AUTO) 0.2 % (0-1); EOSINOPHILS # (AUTO) 0.1 X10'3 (0-0.9); EOSINOPHILS % (AUTO) 1.5 % (0-6); HEMATOCRIT 27.4 % (35.0-45.0); HEMOGLOBIN 9.3 g/dl (12.0-16.0); LYMPHOCYTES # (AUTO) 1.2 X10'3 (1.1-4.8); LYMPHOCYTES % (AUTO) 14.6 % (21-51); MEAN CORPUSCULAR HEMOGLOBIN 33.8 PG (27.0-31.0); MEAN CORPUSCULAR VOLUME 99.6 FL (78-98); MEAN PLATELET VOLUME 7.8 FL (7.4-10.4); MONOCYTES # (AUTO) 0.7 X10'3 (0-0.9); MONOCYTES % (AUTO) 8.6 % (2-12); NEUTROPHILS # (AUTO) 6.2 X10'3 (1.8-7.7); NEUTROPHILS % (AUTO) 75.1 % (42-75); PLATELET COUNT 202 X10'3 (140-440); RED BLOOD COUNT 2.76 X10'6 (4.20-5.60); RED CELL DISTRIBUTION WIDTH 13.5 % (11.5-14.5); WHITE BLOOD COUNT 8.3 X10'3 (4.5-11.0)
[2019-08-07 05:26] LABS: ANION GAP 9 (8-16); BLOOD UREA NITROGEN 9 MG/DL (7-18); BUN/CREATININE RATIO 9.5 (6.6-38.0); CALCIUM 8.4 MG/DL (8.5-10.1); CHLORIDE 107 MMOL/L (99-107); CREATININE 0.95 MG/DL (0.40-0.90); GLUCOSE 91 MG/DL (70-104); POTASSIUM 4.1 MMOL/L (3.5-5.1); SODIUM 140 MMOL/L (135-145); TOTAL CARBON DIOXIDE 24.2 MMOL/L (24-32); eGFR 65 ML/MIN
--- NOTE | 2019-08-07 06:24 | NUR ---
Problems reprioritized. Patient report given, questions answered & plan of care reviewed with NOLBERTO Ellis.
[2019-08-07] MEDS: K, MAG and/or Phos replacement - Verify level? MC SCH (08:00)
[2019-08-07] MEDS ORDERED: acetaminophen 325mg tablet NG PRN ×2 (10:59→11:00)
[2019-08-07] MEDS ORDERED: magnesium hydroxide 30ml (MOM) UD suspension NG PRN (11:00)
[2019-08-07] MEDS: pantoprazole 40 MG vial IV SCH (14:23)
[2019-08-07] MEDS: lactobacillus rhamnosus 10,000 MMU CELLS/CAPSULE PO SCH (16:07)
[2019-08-07] MEDS: docusate sod 100mg capsule PO SCH (16:07)
--- NOTE | 2019-08-07 17:48 | NUR ---
I agree with the physical assessment NOLBERTO Ellis did. Addendum: 08/07/19 at 1750 by Maria Isabel Zambrano RN Amended: Links added.
--- NOTE | 2019-08-07 18:20 | NUR ---
Problems reprioritized. Patient report given, questions answered & plan of care reviewed with Radha ARVIZU.
--- NOTE | 2019-08-07 18:24 | NUR ---
Problems reprioritized. Patient report given, questions answered & plan of care reviewed with NOLBERTO Garcia. Addendum: 08/07/19 at 2155 by Radha Santos RN report at 1800 08/07/19
[2019-08-07] MEDS: lactobacillus rhamnosus 10,000 MMU CELLS/CAPSULE NG SCH (20:49)
[2019-08-07] MEDS: docusate sodium 100mg/10ml UD cup NG SCH (20:49)
[2019-08-08] MEDS: piperacillin/tazo 4.5gm/100ml 100 ML IV SCH ×3 (00:06→16:20)
[2019-08-08] MEDS: HYDROmorphone/NS 1 mg/ml CADD 50 ML IV SCH ×12 (01:00→23:00)
[2019-08-08 02:00] VITALS: BP 113/63
--- NOTE | 2019-08-08 04:00 | NUR ---
NG TUBE MINIMAL DRAINAGE DESPITE LOW INTERMITTENT SUCTION, PATIENT C/O PAIN,REASSESSED FOR DRAINAGE.. WILL PASS ON TO DAY SHIFT .
[2019-08-08 05:02] LABS: BASOPHILS % (AUTO) 0.4 % (0-1); EOSINOPHILS # (AUTO) 0.2 X10'3 (0-0.9); EOSINOPHILS % (AUTO) 1.7 % (0-6); HEMATOCRIT 31.5 % (35.0-45.0); HEMOGLOBIN 10.7 g/dl (12.0-16.0); LYMPHOCYTES # (AUTO) 1.2 X10'3 (1.1-4.8); LYMPHOCYTES % (AUTO) 12.7 % (21-51); MEAN CORPUSCULAR HEMOGLOBIN 33.8 PG (27.0-31.0); MEAN CORPUSCULAR VOLUME 99.3 FL (78-98); MEAN PLATELET VOLUME 7.4 FL (7.4-10.4); MONOCYTES # (AUTO) 0.8 X10'3 (0-0.9); MONOCYTES % (AUTO) 8.6 % (2-12); NEUTROPHILS # (AUTO) 7.5 X10'3 (1.8-7.7); NEUTROPHILS % (AUTO) 76.6 % (42-75); PLATELET COUNT 249 X10'3 (140-440); RED BLOOD COUNT 3.18 X10'6 (4.20-5.60); RED CELL DISTRIBUTION WIDTH 13.3 % (11.5-14.5); WHITE BLOOD COUNT 9.7 X10'3 (4.5-11.0)
[2019-08-08 05:09] LABS: ALBUMIN 2.7 G/DL (3.4-5.0); ANION GAP 11 (8-16); BLOOD UREA NITROGEN 7 MG/DL (7-18); BUN/CREATININE RATIO 6.8 (6.6-38.0); CALCIUM 8.5 MG/DL (8.5-10.1); CHLORIDE 106 MMOL/L (99-107); CREATININE 1.03 MG/DL (0.40-0.90); GLUCOSE 91 MG/DL (70-104); POTASSIUM 3.5 MMOL/L (3.5-5.1); SODIUM 141 MMOL/L (135-145); TOTAL CARBON DIOXIDE 24.4 MMOL/L (24-32); eGFR 59 ML/MIN
--- NOTE | 2019-08-08 06:05 | NUR ---
Patient in room MED 308. I have received report from NOLBERTO Garcia and had the opportunity to ask questions and assume patient care.
--- NOTE | 2019-08-08 06:42 | NUR ---
Problems reprioritized. Patient report given, questions answered & plan of care reviewed with Pilo maza.
[2019-08-08 07:00] VITALS: BP 111/57
[2019-08-08] MEDS: K, MAG and/or Phos replacement - Verify level? MC SCH (08:00)
[2019-08-08] MEDS: pantoprazole 40 MG vial IV SCH (08:00)
[2019-08-08] MEDS: docusate sodium 100mg/10ml UD cup NG SCH ×2 (08:00→20:44)
[2019-08-08] MEDS: lactobacillus rhamnosus 10,000 MMU CELLS/CAPSULE NG SCH ×2 (08:00→20:44)
[2019-08-08 08:10] LABS: MAGNESIUM 1.6 MG/DL (1.5-2.4)
--- NOTE | 2019-08-08 10:07 | NUR ---
Orientee med administration and documentation: I have reviewed and agree with all interventions, assessments performed and documented by Angelica ARVIZU.
[2019-08-08 11:00] VITALS: BP 103/54
[2019-08-08] MEDS: dextrose 5%-1/2 normal saline 1,000 ML IV SCH (15:34)
--- NOTE | 2019-08-08 15:56 | NUR ---
Patient in room MED 308. I have received report from ACCE NOLBERTO Quiles RN and had the opportunity to ask questions and assume patient care.
[2019-08-08 16:37] VITALS: BP 99/67
--- NOTE | 2019-08-08 16:50 | NUR ---
Problems reprioritized. Patient report given, questions answered & plan of care reviewed with NOLBERTO Reeves on surgical.
--- NOTE | 2019-08-08 18:52 | NUR ---
Problems reprioritized. Patient report given, questions answered & plan of care reviewed with Carola ARVIZU.
[2019-08-08] MEDS: diatr meglu/diatrizoate 30ml oral sol.-(3 dose) bottle PO SCH (20:44)
--- NOTE | 2019-08-08 20:48 | NUR ---
NG assessment 08/08/19 @1999 had minimal air, zero residual.
[2019-08-08 21:05] VITALS: BP 108/66
[2019-08-09] VITALS: BP 106/59
--- NOTE | 2019-08-09 00:21 | NUR ---
NG assessed and aspirated. No residual on 08/09/19 @0015
[2019-08-09] MEDS: piperacillin/tazo 4.5gm/100ml 100 ML IV SCH ×4 (00:23→23:25)
[2019-08-09] MEDS: HYDROmorphone/NS 1 mg/ml CADD 50 ML IV SCH ×12 (01:00→23:00)
[2019-08-09] MEDS: dextrose 5%-1/2 normal saline 1,000 ML IV SCH ×3 (01:16→18:12)
--- NOTE | 2019-08-09 04:42 | NUR ---
NG assessed. Zero residual @ 0430 on 08/09/19
[2019-08-09 04:52] LABS: BASOPHILS % (AUTO) 0.3 % (0-1); EOSINOPHILS # (AUTO) 0.2 X10'3 (0-0.9); EOSINOPHILS % (AUTO) 2.7 % (0-6); HEMATOCRIT 31.7 % (35.0-45.0); HEMOGLOBIN 10.7 g/dl (12.0-16.0); LYMPHOCYTES # (AUTO) 0.8 X10'3 (1.1-4.8); MEAN CORPUSCULAR HEMOGLOBIN 33.6 PG (27.0-31.0); MEAN CORPUSCULAR HGB CONC 33.8 g/dL (33.0-36.5); MEAN CORPUSCULAR VOLUME 99.1 FL (78-98); MEAN PLATELET VOLUME 7.6 FL (7.4-10.4); MONOCYTES # (AUTO) 0.8 X10'3 (0-0.9); MONOCYTES % (AUTO) 11.8 % (2-12); NEUTROPHILS % (AUTO) 73.2 % (42-75); PLATELET COUNT 260 X10'3 (140-440); RED BLOOD COUNT 3.19 X10'6 (4.20-5.60); RED CELL DISTRIBUTION WIDTH 13.3 % (11.5-14.5); WHITE BLOOD COUNT 6.8 X10'3 (4.5-11.0)
[2019-08-09 04:58] LABS: ALBUMIN 2.5 G/DL (3.4-5.0); ANION GAP 8 (8-16); BLOOD UREA NITROGEN 6 MG/DL (7-18); BUN/CREATININE RATIO 7.4 (6.6-38.0); CALCIUM 8.3 MG/DL (8.5-10.1); CHLORIDE 106 MMOL/L (99-107); CREATININE 0.81 MG/DL (0.40-0.90); GLUCOSE 132 MG/DL (70-104); POTASSIUM 3.2 MMOL/L (3.5-5.1); SODIUM 141 MMOL/L (135-145); TOTAL CARBON DIOXIDE 26.6 MMOL/L (24-32); eGFR 78 ML/MIN
--- NOTE | 2019-08-09 06:29 | NUR ---
Problems reprioritized. Patient report given, questions answered & plan of care reviewed with Apoorva ARVIZU.
[2019-08-09 07:32] VITALS: BP 112/60
[2019-08-09] MEDS: K, MAG and/or Phos replacement - Verify level? MC SCH (08:00)
[2019-08-09] MEDS: diatr meglu/diatrizoate 30ml oral sol.-(3 dose) bottle PO SCH ×3 (08:00→10:00)
[2019-08-09] MEDS: docusate sodium 100mg/10ml UD cup NG SCH ×2 (08:51→20:25)
[2019-08-09] MEDS: lactobacillus rhamnosus 10,000 MMU CELLS/CAPSULE NG SCH ×2 (08:51→20:25)
[2019-08-09] MEDS: pantoprazole 40 MG vial IV SCH (08:51)
[2019-08-09 11:00] VITALS: BP 97/50
[2019-08-09] MEDS ORDERED: potassium Cl 20 mEq SR tablet PO PRN (14:15)
[2019-08-09] MEDS ORDERED: magnesium Cl slow-release 64mg tablet PO PRN (14:15)
[2019-08-09] MEDS: potassium Cl 20 mEq SR tablet PO PRN (14:39)
--- NOTE | 2019-08-09 17:06 | NUR ---
F/u: Pt seen at bedside provided with written and verbal Bill[place] II nutrition therapy education. All of patient's questions answered at this time, RD contact information provided. Diet has just been advanced to clear liquid pending documentation of PO intake. Informed pt of ONS with diet advancement if needed, pt reports she would like to see how she tolerates diet before starting ONS. Pt endorses a good appetite at this time and denies food allergies or difficulty chewing/swallowing. LBM 08/05. Pt reports passing flatus however no BM yet and states difficulty having BM away from home although she feels she will have one soon. Currently receiving routine Colace. Will continue to follow. Recommendations: 1) Advance to regular diet as medically indicated 2) Monitor need for ONS 3) Routine bowel care; may benefit from opioid antagonist 4) Wt per rx Addendum: 08/09/19 at [address] Amended: Links added.
--- NOTE | 2019-08-09 18:15 | NUR ---
Patient in room [facility] 340. I have received report from Apoorva ARVIZU and had the opportunity to ask questions and assume patient care.
[2019-08-09 18:30] VITALS: BP 100/50
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
[2019-08-10] VITALS: BP 104/56
[2019-08-10] MEDS: HYDROmorphone/NS 1 mg/ml CADD 50 ML IV SCH ×5 (01:00→11:00)
[2019-08-10] MEDS: dextrose 5%-1/2 normal saline 1,000 ML IV SCH ×2 (01:00→05:08)
[2019-08-10 05:29] LABS: EOSINOPHILS # (AUTO) 0.2 X10'3 (0-0.9); HEMOGLOBIN 10.6 g/dl (12.0-16.0); MEAN PLATELET VOLUME 7.7 FL (7.4-10.4); MONOCYTES # (AUTO) 0.8 X10'3 (0-0.9); WHITE BLOOD COUNT 5.5 X10'3 (4.5-11.0)
[2019-08-10 05:31] LABS: BASOPHILS % (AUTO) 0.4 % (0-1); EOSINOPHILS % (AUTO) 4.2 % (0-6); HEMATOCRIT 31.2 % (35.0-45.0); LYMPHOCYTES # (AUTO) 1.2 X10'3 (1.1-4.8); LYMPHOCYTES % (AUTO) 21.9 % (21-51); MEAN CORPUSCULAR HEMOGLOBIN 33.4 PG (27.0-31.0); MEAN CORPUSCULAR HGB CONC 33.8 g/dL (33.0-36.5); MEAN CORPUSCULAR VOLUME 98.8 FL (78-98); MONOCYTES % (AUTO) 15.2 % (2-12); NEUTROPHILS # (AUTO) 3.2 X10'3 (1.8-7.7); NEUTROPHILS % (AUTO) 58.3 % (42-75); PLATELET COUNT 248 X10'3 (140-440); RED BLOOD COUNT 3.16 X10'6 (4.20-5.60); RED CELL DISTRIBUTION WIDTH 13.3 % (11.5-14.5)
[2019-08-10 05:41] LABS: ALBUMIN 2.4 G/DL (3.4-5.0); ANION GAP 9 (8-16); BLOOD UREA NITROGEN 5 MG/DL (7-18); BUN/CREATININE RATIO 5.7 (6.6-38.0); CHLORIDE 107 MMOL/L (99-107); CREATININE 0.87 MG/DL (0.40-0.90); GLUCOSE 115 MG/DL (70-104); POTASSIUM 3.2 MMOL/L (3.5-5.1); SODIUM 144 MMOL/L (135-145); eGFR 71 ML/MIN
[2019-08-10 06:15] LABS: CALCIUM 8.7 MG/DL (8.5-10.1)
[2019-08-10 06:40] LABS: TOTAL CELLS COUNTED 100
[2019-08-10 06:41] LABS: PLATELET ESTIMATE NORMAL
--- NOTE | 2019-08-10 06:49 | NUR ---
Problems reprioritized. Patient report given, questions answered & plan of care reviewed with Shirley ARVIZU and skilled nursing professional.
[2019-08-10] MEDS: K, MAG and/or Phos replacement - Verify level? MC SCH (08:00)
[2019-08-10] MEDS: lactobacillus rhamnosus 10,000 MMU CELLS/CAPSULE NG SCH ×2 (08:56→21:01)
[2019-08-10] MEDS: pantoprazole 40 MG vial IV SCH (08:56)
[2019-08-10] MEDS: potassium Cl 20 mEq SR tablet PO PRN ×3 (08:56→21:50)
[2019-08-10] MEDS: docusate sodium 100mg/10ml UD cup NG SCH ×2 (08:56→21:01)
[2019-08-10] MEDS: piperacillin/tazo 4.5gm/100ml 100 ML IV SCH (09:03)
[2019-08-10] MEDS ORDERED: piperacillin/tazo 3.375gm/50ml 50 ML IV SCH (16:00)
[2019-08-10] MEDS: HYDROcodone/acetaminophen 10/325mg tab PO PRN ×2 (16:55→21:02)
[2019-08-10] MEDS: amox tr/potassium clavulanate 875/125mg TAB PO SCH (16:55)
--- NOTE | 2019-08-10 18:01 | NUR ---
Patient in room [facility] 340. I have received report from Shirley ARVIZU and had the opportunity to ask questions and assume patient care.
[2019-08-10 20:00] VITALS: BP 92/52
[2019-08-10] MEDS: clarithromycin 250mg tablet PO SCH (21:01)
[2019-08-10] MEDS ORDERED: temazepam 15mg capsule PO PRN (22:50)
[2019-08-11] VITALS: BP 91/53
[2019-08-11] MEDS: HYDROcodone/acetaminophen 10/325mg tab PO PRN ×3 (01:14→10:09)
--- NOTE | 2019-08-11 06:25 | NUR ---
Problems reprioritized. Patient report given, questions answered & plan of care reviewed with Lynsey ARVIZU.
[2019-08-11 07:00] VITALS: BP 95/43
[2019-08-11] MEDS ORDERED: pantoprazole 40mg Tablet.DR PO SCH (07:30)
[2019-08-11 07:49] LABS: MAGNESIUM 1.7 MG/DL (1.5-2.4); POTASSIUM 3.6 MMOL/L (3.5-5.1)
[2019-08-11] MEDS: K, MAG and/or Phos replacement - Verify level? MC SCH (08:00)
[2019-08-11] MEDS: amox tr/potassium clavulanate 875/125mg TAB PO SCH (08:16)
[2019-08-11] MEDS: clarithromycin 250mg tablet PO SCH (08:16)
[2019-08-11] MEDS: lactobacillus rhamnosus 10,000 MMU CELLS/CAPSULE NG SCH (08:16)
[2019-08-11] MEDS ORDERED: docusate sod 100mg capsule PO SCH (08:20)
[2019-08-11] MEDS ORDERED: AMOX-580 PO (10:07)
[2019-08-11] MEDS ORDERED: HYDR-4353 PO (10:07)
[2019-08-11] MEDS ORDERED: PANT40TA4 PO (10:07)
[2019-08-11] MEDS ORDERED: CLAR250T39 PO (10:07)
[2019-08-11 11:00] VITALS: BP 108/32
--- NOTE | 2019-08-11 11:56 | NUR ---
Called in discharge prescriptions to [facility] in [place] to [facility] Pharmacist/
--- NOTE | 2019-08-11 12:00 | NUR ---
PT DISCHARGED IN STABLE CONDITION. LEFT FACILITY IN PRIVATE VEHICLE WITH SISTER. IV DC CANULA INTACT. ALL BELONGINGS IN HAND INCLUDING RX FOR NORCO. FOLLOW UP INSTRUCTIONS GIVEN, ALL QUESTIONS ANSWERED. Addendum: 08/11/19 at 1237 by Gretta Mack RN Amended: Links added.
== END 2019-08-11 12:05 | disposition home or self-care (01) | DRG 327 ==
LOC: ER 11:34 → CICU 2S 21:47 → MED 3N 08-07 16:00 → SUR 3N 08-08 16:06
PROVIDERS: ADMIT Internal Medicine Critical Care Medicine
PROC: 0D160ZA Bypass Stomach to Jejunum, Open Approach (ICD-10-PCS; 2019-08-05)
PROC: 008Q0ZZ Division of Vagus Nerve, Open Approach (ICD-10-PCS; 2019-08-05)
PROC: 3E0T3BZ Introduction of Anesthetic Agent into Peripheral Nerves and Plexi, Percutaneous Approach (ICD-10-PCS; 2019-08-05)
PROC: 0DB60ZZ Excision of Stomach, Open Approach (ICD-10-PCS; principal; 2019-08-05 17:52)
DX: K25.5 Chronic or unspecified gastric ulcer with perforation (principal); K56.7 Ileus, unspecified; F32.9 Major depressive disorder, single episode, unspecified; F41.9 Anxiety disorder, unspecified; Z98.891 History of uterine scar from previous surgery; Z79.899 Other long term (current) drug therapy
CPT/HCPCS: 96361; 96365; 96375; 99291; Z7506; Z7508; 36415; 74176; 74177; 80048; 80053; 80305; 81001; 81025; 82948; 83605; 83690; 83735; 84100; 84132; 84145; 85025; 85610; 85730; 86885; 86900; 86901; 86920; 87040; 87070; 87075; 87081; A4215; A4618; A6250; A6253; A6258; A6407; A6449; A7000; C9113; C9290; G0378; J1100; J1170; J1200; J1580; J1630; J1885; J2001; J2060; J2175; J2250; J2270; J2405; J2543; J2704; J2765; J3010; J3480; J3490; J7120; P9045; P9047; Q9963; Q9967